=== PATIENT | male | born 1975 ===

== ENCOUNTER 2019-08-23 06:27 | Day surgery (SDC) | payer BC ==
[2019-08-23] VITALS (9 sets, daily range): BP systolic 105–125; BP diastolic 73–83
[~2019-08-23] VITALS: Ht 172.7 cm; Wt 70.3 kg
[2019-08-23] MEDS ORDERED: NKM (07:00)
[2019-08-23] MEDS ORDERED: Midazolam 2mg/2ml Inj ONE (07:10)
[2019-08-23] MEDS ORDERED: Lidocaine 1% MPF 10mg/ml 5ml ONE ×2 (07:10→07:11)
[2019-08-23] MEDS ORDERED: fentaNYL 100 mcg/2 mL IV ONE ×2 (07:10→08:04)
[2019-08-23] MEDS ORDERED: Propofol 200mg/20ml IV ONE ×2 (07:10→08:40)
[2019-08-23] MEDS ORDERED: Rocuronium Bromide 50mg/5ml Inj IV ONE (07:21)
[2019-08-23] MEDS ORDERED: Bacitracin 50000 Units Vial ONE (07:29)
--- NOTE | 2019-08-23 07:34 | Anethesia Preoperative Eval ---
Anesthesia Pre-op PMH/ROS General Date of Evaluation: Aug 23, 2019 Time of Evaluation: 07:26 Anesthesiologist: Tamara Naranjo CRNA ASA Score: ASA 1 Mallampati Score Class I : Soft palate, uvula, fauces, pillars visible Class II: Soft palate, uvula, fauces visible Class III: Soft palate, base of uvula visible Class IV: Only hard plate visible Mallampati Classification: Class I Surgeon: Gómez Diagnosis: LEFT neck mass Surgical Procedure: excision of LEFT posterior neck mass Family History: no anesthesia problems Allergies: Coded Allergies: No Known Allergies (Unverified , 08/23/19) Medications: see eMAR Patient NPO?: Yes NPO Date: Aug 23, 2019 NPO Time: 00:00 Past Medical History Cardiovascular: Denies: HTN, CAD, CO, valve dz, arrhythmia, other Pulmonary: Denies: asthma, COPD, EVIE, other Gastrointestinal/Genitourinary: Denies: GERD, CRI, ESRD, other Endocrine: Denies: DM, hypothyroidism, steroids, other HEENT: Reports: other - LEFT scalp mass; Denies: cataract (L), cataract (R), glaucoma, [place] (L), [place] (R) Hematology/Immune: Denies: anemia, DVT, bleeding disorder, other Musculoskeletal/Integumentary: Denies: OA, RA, DJD, DDD, edema, other PMH Narrative: healthy PSxH Narrative: RT ganglion cyst excision Anesthesia Pre-op Phys. Exam Physician Exam Last Vital Signs Date Time Temp Pulse Resp B/P (MAP) Pulse Ox O2 Delivery O2 Flow Rate FiO2 08/23/19 07:14 Room Air 08/23/19 06:56 97.1 73 18 122/83 98 Constitutional: NAD Neurologic: other - alert & oriented, pleasant Cardiovascular: RRR Respiratory: CTA Gastrointestinal: S/NT/ND Airway Exam Mallampati Score: Class I MO: full Neck: FROM TMD: 3 FB ROM: full Teeth: intact Dentures: no upper, no lower Anesthesia Pre-op A/P Risk Assessment & Plan Assessment: ASA 1 , ok to proceed Plan: MAC Status Change Before Surgery: No Pre-Antibiotics Drug: Tamara Mays CRNA Aug 23, 2019 07:34
--- NOTE | 2019-08-23 07:39 | Pre-Procedure Note/Attestation ---
Pre-Procedure Note/Attestation Complete Prior to Procedure Planned Procedure: left Procedure Narrative: excision of left posterior neck mass Indications for Procedure Pre-Operative Diagnosis: left posterior neck mass Attestation I attest that I discussed the nature of the procedure; its benefits; risks and complications; and alternatives (and the risks and benefits of such alternatives ), prior to the procedure, with the patient (or the patient's legal hr representative). I attest that, if there was a reasonable possibility of needing a blood transfusion, the patient (or the patient's legal hr representative) was given the [facility] standardized written summary, pursuant to the [place] Blood Safety Act ([place] Health and Safety Code # 1645, as amended). I attest that I re-evaluated the patient just prior to the surgery and that there has been no change in the patient's H&P, except as documented below: Rich Magaña Aug 23, 2019 07:39
[2019-08-23] MEDS ORDERED: ceFAZolin sod 2 GM in D5W 110 ML IV ONE (07:45)
[2019-08-23] MEDS ORDERED: Sterile Water Irrig 1000ml IRRIG ONE (08:00)
[2019-08-23] MEDS ORDERED: NS Irrig 1000ml ONE (08:00)
[2019-08-23] MEDS ORDERED: LR 1000ml ONE (08:00)
[2019-08-23] MEDS ORDERED: Ketorolac 30mg Inj IV PRN (09:00)
--- NOTE | 2019-08-23 09:03 | Immediate Post-Op Evaluation ---
Immediate Post-Op Evalulation Immediate Post-Op Evalulation Procedure: excision of LEFT posterior neck mass Date of Evaluation: Aug 23, 2019 Time of Evaluation: 09:00 IV Fluids: LR 400 ml Estimated Blood Loss: minimal Blood Pressure Systolic: 105 Blood Pressure Diastolic: 82 Pulse Rate: 100 Respiratory Rate: 12 O2 Sat by Pulse Oximetry: 100 Temperature (Fahrenheit): 97.8 Pain Score (1-10): 0 Nausea: No Vomiting: No Complications none Patient Status: awake, reacts, patent Hydration Status: adequate Drug: cefazolin 2000 mg IV Given Within 1 Hr of Incision: Yes Time Given: 08:05 Tamara Naranjo CRNA Aug 23, 2019 09:03
--- NOTE | 2019-08-23 10:44 | Brief Operative Note ---
Immediate Post Operative Note Operative Note Pre-op Diagnosis: left posterior neck mass Procedure: 1. excision of deep left posterior neck mass down to muscle 2. adjacent tissue transfer with flap for closure Post-op Diagnosis: same as pre-op Surgeon: fuad Anesthesiologist: vaishnavi Anesthesia: local, MAC Specimen: yes Complications: none Condition: stable Fluids: see records Estimated Blood Loss: minimal Drains: none Implant(s) used?: No Rich Magaña Aug 23, 2019 10:44
[2019-08-23] MEDS ORDERED: HYDROmorphone 1mg/ml Carpuject SUBQ PRN (10:45)
[2019-08-23] MEDS ORDERED: HYDROcodone/Acetamin 5/325 tab ORAL PRN (10:45)
[2019-08-23] MEDS ORDERED: Tylenol #3 tab (300mg/30mg) ORAL PRN (10:45)
--- NOTE | 2019-08-23 12:41 | 48 Hour Post Anesthesia Eval ---
Post Anesthesia Evaluation Procedure: excision of LEFT posterior neck mass Date of Evaluation: Aug 23, 2019 Time of Evaluation: 12:40 Blood Pressure Systolic: 116 0: 76 Pulse Rate: 63 Respiratory Rate: 16 Temperature (Fahrenheit): 98 O2 Sat by Pulse Oximetry: 100 Airway: patent Nausea: No Vomiting: No Pain Intensity: 0 Hydration Status: adequate Cardiopulmonary Status: stable Mental Status/LOC: patient returned to baseline Follow-up Care/Observations: per gen surgery Post-Anesthesia Complications: none Follow-up care needed: N/A Tamara Naranjo CRNA Aug 23, 2019 12:41
[2019-08-23] MEDS ORDERED: D5 1/2NS 1,000 ML IV SCH (15:00)
--- NOTE | 2019-08-23 15:00 | Operative Note - Dictated ---
DATE OF OPERATION: 08/23/2019 PREOPERATIVE DIAGNOSIS: Left posterior neck mass. POSTOPERATIVE DIAGNOSIS: Left posterior neck mass deep to muscle. OPERATION PERFORMED: 1. Excision of left posterior neck mass deep down to muscle. 2. Adjacent tissue transfer with flap for complex closure. ATTENDING SURGEON: Rich Magaña M.D. DESKTOP SUPPORT TECHNICIAN: None. ANESTHESIOLOGIST: Tamara Naranjo CRNA. ANESTHESIA: MAC plus local. ESTIMATED BLOOD LOSS: Minimal. IV FLUIDS: Please see anesthesia records. COMPLICATIONS: None. DRAINS: None. COUNTS: Sponge and needle count correct x2. WOUND CLASSIFICATION: Class I. ANTIBIOTICS: 2 g of Ancef IV given 1 hour prior to cut time. SPECIMENS: Left posterior neck mass sent to pathology for review. INDICATIONS FOR PROCEDURE: This 44-year-old male who was referred to Dr. Magaña by his primary care physician, Dr. Subhash Back for evaluation of a posterior neck mass, which he feels has become a little bit larger and is causing discomfort. The patient was seen in the office and evaluated and identified to have a mobile left posterior neck mass. Surgery was indicated and recommended. Excision was discussed and the patient expressed understanding and consented to procedure. All risks, benefits, and alternatives were discussed in the office in detail prior to surgery. OPERATIVE NOTE: The patient was taken to the operating room and placed on operating table in the prone position with bilateral arms out. All bony prominences were well padded. SCDs were placed. Preoperative time-out taken identifying the patient, procedure, operative and surgical staff. A 2 g Ancef IV were given one hour prior to cut time. The patient was made comfortable by the anesthesiologist under MAC sedation. The posterior neck was prepped and draped in standard surgical fashion. The mass was preoperatively marked for appropriate incision. Local anesthetic was infiltrated in the proposed skin incision. A fresh #15 scalpel was used and an incision was made overlying the apex of the mass. Incision was carried down the subcutaneous tissue and down to the fascia of the posterior neck. At this time it was clearly identified that the mass was underneath the dense fibrinous tissues/fascia and directly attached to the posterior neck muscle/trapezius, more seemingly the trapezius. Following this, mass was circumferentially excised out and removed and sent to pathology for review. Hemostasis was obtained with electrocautery. The wound bed was irrigated and cleansed. More local anesthetic was infiltrated deep and circumferentially. Once this was complete, given the size of the defect, decision was made to perform an adjacent tissue transfer to close the underlying space to allow for appropriate healing with reduced risk of seroma or hematoma formation or abscess. The muscle and fascia were slowly released superiorly and inferiorly to allow for mobilization for reapproximation. In similar fashion, subcutaneous tissue was released to allow for reapproximation. 3-0 Vicryl sutures were used and each wire was reapproximated independently with 3-0 Vicryl interrupted sutures. Wound bed was irrigated again and the skin was reapproximated in two-layer fashion beginning with a 3-0 Vicryl dermal followed by a 4-0 Monocryl subcuticular running suture. Skin was cleansed and Dermabond was applied followed by dressings. The patient tolerated the procedure well, was awakened and taken to postanesthetic care unit in stable condition and discharged in stable condition. The patient to follow up on 08/29/2019. Rich Magaña M.D. DR: POOJA JOB#: [id number] CC:
== END 2019-08-23 10:40 | disposition home or self-care (01) ==
LOC: SUR 06:27
DX: D17.0 Benign lipomatous neoplasm of skin and subcutaneous tissue of head, face and neck (principal)
CPT/HCPCS: 14040; J2250; J2704; J3010; J7120; 94003; 94150